=== PATIENT | male | born 1965 | race Caucasian/White ===

== ENCOUNTER 2019-01-28 14:19 | Outpatient (CLI) | payer OTHER ==
[2019-01-28] MEDS ORDERED: TADA20TA PO (14:52)
[2019-01-28] MEDS ORDERED: TAMS-11 PO (14:52)
[2019-01-28] MEDS ORDERED: NAPR220C2 PO (15:15)
[2019-01-28] MEDS ORDERED: MULTIVITAMIN PO (15:15)
[2019-01-28] MEDS ORDERED: FISH OIL PO (15:15)
[2019-01-28 15:28] LABS: ANION GAP 3 mmol/L (5-15); CALCIUM 8.7 mg/dL (8.5-10.1); CHLORIDE 114 mmol/L (98-107); CREATININE 0.85 mg/dL (0.7-1.3)
[2019-01-28 15:30] LABS: BASOPHILS # (AUTO) 0.02 x10^3/uL (0-0.1); BASOPHILS % (AUTO) 0 % (0-1); EOSINOPHILS # (AUTO) 0.04 x10^3/uL (0-0.4); EOSINOPHILS % (AUTO) 1 % (1-7); LYMPHOCYTES # (AUTO) 0.83 x10^3/uL (1-3.4); LYMPHOCYTES % (AUTO) 16 % (22-44); MD NO; MEAN CORPUSCULAR HEMOGLOBIN 30.7 pg (27.5-34.5); MEAN CORPUSCULAR HGB CONC 33.8 g/dL (33.2-36.2); MEAN CORPUSCULAR VOLUME 90.8 fL (81-97); MEAN PLATELET VOLUME 8.3 fL (7.4-10.4); MONOCYTES # (AUTO) 0.36 x10^3/uL (0.2-0.8); MONOCYTES % (AUTO) 7 % (2-9); NEUTROPHILS # (AUTO) 4.04 x10^3/uL (1.8-6.8); NEUTROPHILS % (AUTO) 76 % (42-75); PLATELET COUNT 231 x10^3/uL (130-400); RED BLOOD COUNT 4.91 x10^6/uL (4.38-5.82); RED CELL DISTRIBUTION WIDTH 13.4 % (9.4-14.8)
[2019-01-28 15:44] LABS: INTERNATIONAL NORMALIZED RATIO 0.96 (0.93-1.1); PROTHROMBIN TIME 10.1 Seconds (9.6-11.5)
[2019-01-28 16:35] LABS: HEMOGLOBIN A1C 5.4 % (4.2-6.3)
== END 2019-01-28 23:59 | disposition home or self-care (01) ==
LOC: STAR 14:19
PROVIDERS: ATTEND Orthopaedic Surgery
DX: M17.11 Unilateral primary osteoarthritis, right knee (principal)
CPT/HCPCS: 36415; 80048; 83036; 85025; 85610; 85730; 87081; 87147; 87806; G0475

== ENCOUNTER 2019-02-07 09:18 | Observation (INO) | payer OTHER ==
[2019-01-28 14:47] VITALS: BP 128/90
[~2019-02-07] VITALS: Ht 170.2 cm; Wt 112.2 kg
[~2019-02-07 09:18] MED LIST: EPINEPHRINE 1 MG/ML, 1ML ONE; FISH OIL PO; KETOROLAC 60 MG/2 ML ONE; MULTIVITAMIN PO; NAPR220C2 PO; ROPIvacaine/PF 0.2%, 20 ML ONE; SODIUM CHLORIDE 0.9% 50 ML ONE; TADA20TA PO; TAMS-11 PO; TRANEXAMIC ACID 100 MG/ML, 10ML ONE
[2019-02-07] MEDS ORDERED: LACTATED RINGERS 1,000 ML IV SCH (10:00)
[2019-02-07] MEDS ORDERED: ACETAMINOPHEN 500 MG TABLET PO ONE (10:00)
[2019-02-07] MEDS ORDERED: GABAPENTIN 300 MG CAPSULE PO ONE (10:00)
[2019-02-07] MEDS ORDERED: FENTANYL PF 250 MCG/5ML ONE ×2 (10:31→12:20)
[2019-02-07] MEDS ORDERED: MIDAZOLAM 1 MG/ML, 2ML ONE (10:31)
[2019-02-07] MEDS ORDERED: LIDOCAINE 2% 100MG/5ML SYRINGE ONE (11:48)
[2019-02-07] MEDS ORDERED: hydrALAzine 20 MG/ML, 1ML ONE (11:48)
[2019-02-07] MEDS ORDERED: SENNA/DOCUSATE TABLET PO PRN (12:00)
[2019-02-07] MEDS ORDERED: TRANEXAMIC ACID 1,000 MG in SODIUM CHLORIDE 0.9% 100 ML IVPB ONE (12:00)
[2019-02-07] MEDS ORDERED: ONDANSETRON 2MG/ML, 2ML IV PRN ×2 (12:00→12:30)
[2019-02-07] MEDS ORDERED: HYDROmorphone 1 MG/ML, 1ML IV PRN (12:00)
[2019-02-07] MEDS ORDERED: PROMETHAZINE 25 MG/ML, 1ML IM PRN (12:00)
[2019-02-07] MEDS ORDERED: ONDANSETRON 4 MG TABLET PO PRN (12:00)
[2019-02-07] MEDS ORDERED: ALUMINUM/MAG/SIMETHICONE 30 ML UDC PO PRN (12:00)
[2019-02-07] MEDS ORDERED: CEFAZOLIN PMX 1GM/50ML 50 ML IVPB SCH ×2 (12:00)
[2019-02-07] MEDS ORDERED: ACETAMINOPHEN 650 MG/20.3 ML UDC PO PRN (12:00)
[2019-02-07] MEDS ORDERED: MAGNESIUM HYDROXIDE 8%, 30ML UDC PO PRN (12:00)
[2019-02-07] MEDS ORDERED: DIPHENHYDRAMINE 50 MG CAPSULE PO PRN (12:00)
[2019-02-07] MEDS ORDERED: ONDANSETRON 2MG/ML, 2ML ONE (12:13)
[2019-02-07] MEDS ORDERED: DEXAMETHASONE 4 MG/ML, 1ML ONE (12:13)
[2019-02-07] MEDS ORDERED: CEFAZOLIN 1,000 MG ONE (12:13)
[2019-02-07] MEDS ORDERED: PROPOFOL 10 MG/ML, 20ML ONE (12:13)
[2019-02-07] MEDS ORDERED: OXYcodone 5 MG/5 ML ORAL.SOL UDC PO PRN (12:30)
[2019-02-07] MEDS ORDERED: PROMETHAZINE 25 MG/ML, 1ML IV PRN (12:30)
[2019-02-07] MEDS ORDERED: ONDANSETRON ODT 8 MG PO PRN (12:30)
[2019-02-07] MEDS ORDERED: LORazepam 2 MG/ML, 1ML IVPush PRN (12:30)
[2019-02-07] MEDS ORDERED: MEPERIDINE/PF 25MG/0.5ML IVPush PRN (12:30)
[2019-02-07] MEDS ORDERED: DIAZEPAM 5 MG/ML, 2ML IVPush PRN (12:30)
[2019-02-07] MEDS ORDERED: HYDROmorphone 1 MG/ML, 1ML ONE (13:29)
[2019-02-07] MEDS ORDERED: OXYcodone 5 MG/5 ML ORAL.SOL UDC ONE (13:29)
[2019-02-07] MEDS: HYDROmorphone 2 MG/ML, 1ML IVPush PRN ×2 (13:29→13:51)
[2019-02-07] MEDS ORDERED: FENTANYL PF 100 MCG/2ML ONE (13:29)
[2019-02-07] MEDS: FENTANYL PF 100 MCG/2ML IV PRN ×3 (13:40→14:08)
[2019-02-07] MEDS ORDERED: MEPERIDINE/PF 25MG/ML,1ML ONE (14:11)
[2019-02-07] MEDS: D5%-0.45NACL+KCL 20MEQ 1,000 ML IV SCH (17:46)
[2019-02-07] MEDS: ASPIRIN 81 MG TABLET EC PO SCH (18:25)
[2019-02-07] MEDS: OXYcodone IR 5MG TABLET PO PRN (18:47)
[2019-02-07] MEDS: DOCUSATE 100 MG CAPSULE PO SCH (19:51)
[2019-02-07 20:01] VITALS: BP 126/75
[2019-02-07] MEDS: CEFAZOLIN PMX 1GM/50ML 50 ML IVPB SCH (21:41)
[2019-02-08 00:13] VITALS: BP 108/55
[2019-02-08] MEDS: OXYcodone IR 5MG TABLET PO PRN ×4 (00:29→11:40)
[2019-02-08] MEDS: D5%-0.45NACL+KCL 20MEQ 1,000 ML IV SCH (04:00)
[2019-02-08 04:23] VITALS: BP 99/58
[2019-02-08] MEDS: ASPIRIN 81 MG TABLET EC PO SCH (04:49)
[2019-02-08] MEDS: CEFAZOLIN PMX 1GM/50ML 50 ML IVPB SCH (04:49)
[2019-02-08] MEDS ORDERED: DEXAMETHASONE 4 MG/ML, 1ML IVPush SCH (06:00)
[2019-02-08 07:31] VITALS: BP 124/74
[2019-02-08] MEDS: DOCUSATE 100 MG CAPSULE PO SCH (07:39)
[2019-02-08] MEDS ORDERED: TAMSULOSIN 0.4 MG CAP.ER.24H PO SCH (09:00)
[2019-02-08] MEDS ORDERED: ASPI81TA45 PO (09:41)
[2019-02-08] MEDS ORDERED: KETOROLAC 30 MG/1 ML IV SCH (12:00)
== END 2019-02-08 12:10 | disposition home or self-care (01) ==
LOC: OUT 09:18 → ORIP 11:45 → 4NOR 15:23 → DCLOUNGE 02-08 11:50
PROVIDERS: ADMIT Orthopaedic Surgery; ATTEND Orthopaedic Surgery
DX: M17.11 Unilateral primary osteoarthritis, right knee (principal)
CPT/HCPCS: 27447; 36415; 73560; 85014; 85018; 96365; 96366; 96375; 97110; 97161; C1713; C1776; G0378; J0171; J0360; J0690; J1100; J1170; J1885; J2175; J2250; J2405; J2704; J2795; J3010; J3480; J7120; Q0162

== ENCOUNTER → 2021-04-25 | Outpatient (CLI) | payer OTHER ==
[~2021-04-25] MED LIST changes: +ACET-1600 PO; +ASPI81TA45 PO; -EPINEPHRINE 1 MG/ML, 1ML ONE; +GABA300C PO; +IBUP200C8 PO; -KETOROLAC 60 MG/2 ML ONE; +LISI-170 PO; +PSYL1POW PO; -ROPIvacaine/PF 0.2%, 20 ML ONE; +ROSU10TA2 PO; -SODIUM CHLORIDE 0.9% 50 ML ONE; -TRANEXAMIC ACID 100 MG/ML, 10ML ONE
[2021-04-25 15:35] LABS: MICROSCOPIC NOT IND
[2021-04-25 15:40] LABS: BASOPHILS % (AUTO) 0 % (0-1); EOSINOPHILS % (AUTO) 1 % (1-7); LYMPHOCYTES % (AUTO) 15 % (22-44); MEAN CORPUSCULAR HEMOGLOBIN 30.6 pg (27.5-34.5); MEAN CORPUSCULAR HGB CONC 33.7 g/dL (33.2-36.2); MEAN PLATELET VOLUME 8.3 fL (7.4-10.4); MONOCYTES % (AUTO) 8 % (2-9); NEUTROPHILS % (AUTO) 75 % (42-75); PLATELET COUNT 233 x10^3/uL (130-400); RED BLOOD COUNT 4.99 x10^6/uL (4.38-5.82); RED CELL DISTRIBUTION WIDTH 13.8 % (9.4-14.8)
[2021-04-25 15:41] LABS: MD NO
[2021-04-25 15:42] LABS: ALANINE AMINOTRANSFERASE 43 U/L (12-78); CHLORIDE 108 mmol/L (98-107)
[2021-04-25 15:46] LABS: INTERNATIONAL NORMALIZED RATIO 0.95 (0.93-1.1); PROTHROMBIN TIME 10.2 Seconds (9.6-11.5)
[2021-04-25 15:47] LABS: ALBUMIN 3.7 g/dL (3.4-5.0); ALKALINE PHOSPHATASE 73 U/L (45-117); ANION GAP 6 mmol/L (5-15); BILIRUBIN,TOTAL 0.5 mg/dL (0.2-1.0); CALCIUM 9.2 mg/dL (8.5-10.1); CREATININE 0.92 mg/dL (0.7-1.3)
== END | disposition home or self-care (01) ==
LOC: STAR 13:59
PROVIDERS: ATTEND Neurological Surgery
DX: Z01.810 Encounter for preprocedural cardiovascular examination (principal); Z01.811 Encounter for preprocedural respiratory examination; Z01.812 Encounter for preprocedural laboratory examination; R79.1 Abnormal coagulation profile; R94.31 Abnormal electrocardiogram [ECG] [EKG]; R82.90 Unspecified abnormal findings in urine; M51.36 Other intervertebral disc degeneration, lumbar region; M48.061 Spinal stenosis, lumbar region without neurogenic claudication; I10 Essential (primary) hypertension; M51.35 Other intervertebral disc degeneration, thoracolumbar region; M48.05 Spinal stenosis, thoracolumbar region; M41.86 Other forms of scoliosis, lumbar region; M25.78 Osteophyte, vertebrae
CPT/HCPCS: 36415; 71046; 72110; 80053; 81003; 85025; 85610; 85730; 93005

== ENCOUNTER 2021-05-03 05:40 | Inpatient (IN) | payer OTHER ==
[~2021-05-03] VITALS: Ht 170.2 cm; Wt 130.4 kg
[2021-05-03] MEDS ORDERED: FENTANYL PF 250 MCG/5ML ONE ×3 (06:19→08:16)
[2021-05-03] MEDS ORDERED: MIDAZOLAM 1 MG/ML, 2ML ONE (06:19)
[2021-05-03] MEDS ORDERED: HEPARIN 1,000 UNITS/ML, 30ML ONE (06:22)
[2021-05-03] MEDS ORDERED: BACITRACIN 50,000 UNIT ONE (06:22)
[2021-05-03] MEDS ORDERED: PROPOFOL 100 ML ONE (06:23)
[2021-05-03] MEDS ORDERED: PROPOFOL 10 MG/ML, 20ML ONE (06:25)
[2021-05-03] MEDS ORDERED: GLYCOPYRROLATE 0.2MG/1ML, 5ML ONE (06:25)
[2021-05-03] MEDS ORDERED: NEOSTIGMINE 1 MG/ML, 10ML ONE (06:25)
[2021-05-03] MEDS ORDERED: ROCURONIUM 10MG/ML,5ML ONE ×2 (06:25→07:30)
[2021-05-03] MEDS ORDERED: CEFAZOLIN 1,000 MG ONE ×2 (06:25→07:16)
[2021-05-03] MEDS ORDERED: CHLORHEXIDINE 15 ML UDC PO ONE (06:30)
[2021-05-03] MEDS ORDERED: LACTATED RINGERS 1,000 ML IV SCH (06:30)
[2021-05-03] MEDS ORDERED: OXYcodone 5 MG/5 ML ORAL.SOL UDC PO PRN (07:00)
[2021-05-03] MEDS ORDERED: HYDROmorphone 1 MG/ML, 1ML INJ IVPush PRN (07:00)
[2021-05-03] MEDS ORDERED: morphine SULFATE 10 MG/ML, 1ML IVPush PRN ×2 (07:00→09:00)
[2021-05-03] MEDS ORDERED: MEPERIDINE/PF 25MG/0.5ML IVPush PRN (07:00)
[2021-05-03] MEDS ORDERED: LABETALOL 5MG/ML, 20ML IV PRN (07:00)
[2021-05-03] MEDS ORDERED: hydrALAzine 20 MG/ML, 1ML IV PRN (07:00)
[2021-05-03] MEDS ORDERED: ACETAMINOPHEN 325 MG TABLET PO PRN (07:00)
[2021-05-03] MEDS ORDERED: ONDANSETRON 2MG/ML, 2ML IVPush PRN ×2 (07:00→09:00)
[2021-05-03] MEDS ORDERED: FENTANYL PF 100 MCG/2ML IV PRN (07:00)
[2021-05-03] MEDS ORDERED: HEPARIN 1,000 UNITS/ML, 30ML IVPB ONE (07:47)
[2021-05-03] MEDS ORDERED: PROPOFOL 50 ML ONE (08:26)
[2021-05-03] MEDS: PSYLLIUM PACKET PO SCH (09:00)
[2021-05-03] MEDS ORDERED: PROMETHAZINE 25 MG/ML, 1ML IM PRN (09:00)
[2021-05-03] MEDS: LISINOPRIL 20 MG TABLET PO SCH (09:00)
[2021-05-03] MEDS ORDERED: PHARMACY MAY ADJ FOR RENAL FX MC PRN (09:00)
[2021-05-03] MEDS ORDERED: MAGNESIUM HYDROXIDE 8%, 30ML UDC PO PRN (09:00)
[2021-05-03] MEDS ORDERED: HYDROcodone/APAP 10/325 MG TABLET PO PRN (09:00)
[2021-05-03] MEDS ORDERED: METHOCARBAMOL 1,000 MG in DEXTROSE 5% 100 ML IV ONE (09:00)
[2021-05-03] MEDS ORDERED: DIPHENHYDRAMINE 50 MG CAPSULE PO PRN (09:00)
[2021-05-03] MEDS: GABAPENTIN 300 MG CAPSULE PO SCH ×2 (09:00→20:40)
[2021-05-03] MEDS ORDERED: LABETALOL 5MG/ML, 20ML IVPush PRN (09:00)
[2021-05-03] MEDS: TAMSULOSIN 0.4 MG CAP.ER.24H PO SCH (09:00)
[2021-05-03] MEDS ORDERED: OXYcodone 5 MG/5 ML ORAL.SOL UDC ONE (09:19)
[2021-05-03] MEDS ORDERED: ACETAMINOPHEN 650 MG/20.3 ML UDC ONE (09:19)
[2021-05-03] MEDS ORDERED: hydrALAzine 20 MG/ML, 1ML ONE (09:34)
[2021-05-03] MEDS ORDERED: LABETALOL 5MG/ML, 20ML ONE (09:47)
[2021-05-03] MEDS ORDERED: ONDANSETRON 2MG/ML, 2ML ONE (09:47)
[2021-05-03] MEDS ORDERED: KETOROLAC 30 MG/1 ML IVPush STA (09:58)
[2021-05-03] MEDS ORDERED: KETOROLAC 30 MG/1 ML ONE (10:01)
[2021-05-03] MEDS: NS + 20MEQ KCL 1,000 ML IV SCH (12:04)
[2021-05-03] MEDS: METHOCARBAMOL 750 MG TABLET PO PRN ×2 (14:16→23:19)
[2021-05-03] MEDS: OXYcodone/APAP 5/325MG TABLET PO PRN ×2 (14:17→20:40)
[2021-05-03] MEDS: CEFAZOLIN PMX 1GM/50ML 50 ML IVPB SCH ×2 (14:18→23:19)
[2021-05-03 15:58] VITALS: BP 151/96
[2021-05-03 20:08] VITALS: BP 148/91
[2021-05-03] MEDS: ENOXAPARIN 30 MG/0.3 ML SQ SCH (20:40)
[2021-05-03] MEDS: ATORVASTATIN 40 MG TABLET PO SCH (20:40)
[2021-05-04 00:06] VITALS: BP 127/77
[2021-05-04] MEDS: NS + 20MEQ KCL 1,000 ML IV SCH ×2 (01:56→16:06)
[2021-05-04] MEDS ORDERED: ENOXAPARIN 40 MG/0.4 ML SQ SCH (06:00)
[2021-05-04 07:18] VITALS: BP 159/94
[2021-05-04] MEDS: CYCLOBENZAPRINE 10 MG TABLET PO PRN ×2 (08:47→20:23)
[2021-05-04] MEDS: PSYLLIUM PACKET PO SCH (08:47)
[2021-05-04] MEDS: LISINOPRIL 20 MG TABLET PO SCH (08:47)
[2021-05-04] MEDS: GABAPENTIN 300 MG CAPSULE PO SCH ×2 (08:47→20:21)
[2021-05-04] MEDS: ENOXAPARIN 30 MG/0.3 ML SQ SCH ×2 (08:48→20:00)
[2021-05-04] MEDS: TAMSULOSIN 0.4 MG CAP.ER.24H PO SCH (08:48)
[2021-05-04] MEDS: SENNA/DOCUSATE TABLET PO PRN (08:48)
[2021-05-04 09:10] LABS: BASOPHILS % (AUTO) 0 % (0-1); EOSINOPHILS % (AUTO) 0 % (1-7); LYMPHOCYTES % (AUTO) 5 % (22-44); MEAN CORPUSCULAR HEMOGLOBIN 30.8 pg (27.5-34.5); MEAN CORPUSCULAR HGB CONC 33.8 g/dL (33.2-36.2); MEAN PLATELET VOLUME 8.3 fL (7.4-10.4); MONOCYTES % (AUTO) 8 % (2-9); NEUTROPHILS % (AUTO) 87 % (42-75); PLATELET COUNT 185 x10^3/uL (130-400); RED BLOOD COUNT 4.71 x10^6/uL (4.38-5.82); RED CELL DISTRIBUTION WIDTH 13.7 % (9.4-14.8)
[2021-05-04 09:21] LABS: ANION GAP 6 mmol/L (5-15); CHLORIDE 109 mmol/L (98-107); CREATININE 0.65 mg/dL (0.7-1.3)
[2021-05-04 14:40] VITALS: BP 144/88
[2021-05-04 20:00] VITALS: BP 150/87
[2021-05-04] MEDS: ATORVASTATIN 40 MG TABLET PO SCH (20:21)
[2021-05-04] MEDS: HYDROcodone/APAP 5/325 TABLET PO PRN (22:28)
[2021-05-04] MEDS: DIPHENHYDRAMINE 50 MG/ML, 1ML IVPush PRN (22:53)
[2021-05-05 02:55] VITALS: BP 154/91
[2021-05-05] MEDS: NS + 20MEQ KCL 1,000 ML IV SCH ×2 (04:54→17:01)
[2021-05-05] MEDS ORDERED: BUPIVACAINE/PF 0.5% ONE (05:50)
[2021-05-05] MEDS ORDERED: EPINEPHRINE 1 MG/ML, 1ML ONE (05:50)
[2021-05-05] MEDS ORDERED: BACITRACIN 50,000 UNIT ONE (05:50)
[2021-05-05] MEDS ORDERED: FENTANYL PF 250 MCG/5ML ONE (06:40)
[2021-05-05] MEDS ORDERED: MIDAZOLAM 1 MG/ML, 2ML ONE (06:40)
[2021-05-05] MEDS ORDERED: PROPOFOL 50 ML ONE (06:40)
[2021-05-05] MEDS ORDERED: PROPOFOL 250 ML ONE (06:41)
[2021-05-05] MEDS ORDERED: PROPOFOL 300 ML ONE (06:42)
[2021-05-05] MEDS ORDERED: PROPOFOL 10 MG/ML, 20ML ONE (07:28)
[2021-05-05] MEDS ORDERED: SUCCINYLCHOLINE 20 MG/ML, 10ML ONE (07:28)
[2021-05-05] MEDS ORDERED: ONDANSETRON 2MG/ML, 2ML ONE (07:28)
[2021-05-05] MEDS ORDERED: DEXAMETHASONE 4 MG/ML, 1ML ONE (07:28)
[2021-05-05] MEDS ORDERED: CEFAZOLIN 1,000 MG ONE (07:28)
[2021-05-05] MEDS ORDERED: PROMETHAZINE 25 MG/ML, 1ML IVPush PRN (07:30)
[2021-05-05] MEDS ORDERED: LABETALOL 5MG/ML, 20ML IV PRN (07:30)
[2021-05-05] MEDS ORDERED: FENTANYL PF 100 MCG/2ML IV PRN (07:30)
[2021-05-05] MEDS ORDERED: ACETAMINOPHEN 325 MG TABLET PO PRN (07:30)
[2021-05-05] MEDS ORDERED: HYDROmorphone 1 MG/ML, 1ML INJ IVPush PRN (07:30)
[2021-05-05] MEDS ORDERED: OXYcodone 5 MG/5 ML ORAL.SOL UDC PO PRN (07:30)
[2021-05-05] MEDS ORDERED: ONDANSETRON 2MG/ML, 2ML IVPush PRN ×2 (07:30→10:00)
[2021-05-05] MEDS ORDERED: hydrALAzine 20 MG/ML, 1ML IV PRN (07:30)
[2021-05-05] MEDS ORDERED: EPHEDRINE 50 MG/ML, 1ML IVPush PRN (07:30)
[2021-05-05] MEDS ORDERED: EPHEDRINE 50 MG/ML, 1ML ONE (08:04)
[2021-05-05] MEDS ORDERED: HYDROmorphone 1 MG/ML, 1ML INJ ONE ×2 (08:26→09:05)
[2021-05-05] MEDS: PSYLLIUM PACKET PO SCH (09:00)
[2021-05-05] MEDS: ENOXAPARIN 30 MG/0.3 ML SQ SCH ×2 (09:00→20:53)
[2021-05-05] MEDS ORDERED: OXYcodone/APAP 5/325MG TABLET PO PRN (10:00)
[2021-05-05] MEDS ORDERED: PHARMACY MAY ADJ FOR RENAL FX MC PRN (10:00)
[2021-05-05] MEDS ORDERED: LABETALOL 5MG/ML, 20ML IVPush PRN (10:00)
[2021-05-05] MEDS ORDERED: morphine SULFATE 10 MG/ML, 1ML IVPush PRN (10:00)
[2021-05-05] MEDS ORDERED: HYDROcodone/APAP 10/325 MG TABLET PO PRN (10:00)
[2021-05-05] MEDS ORDERED: PROMETHAZINE 25 MG/ML, 1ML IM PRN (10:00)
[2021-05-05] MEDS ORDERED: METHOCARBAMOL 1,000 MG in DEXTROSE 5% 100 ML IV ONE (10:15)
[2021-05-05] MEDS ORDERED: NS + 20MEQ KCL 1,000 ML IV SCH (10:30)
[2021-05-05] MEDS ORDERED: METHOCARBAMOL 750 MG TABLET PO PRN (12:00)
[2021-05-05] MEDS: CYCLOBENZAPRINE 10 MG TABLET PO PRN ×2 (12:49→20:54)
[2021-05-05] MEDS: HYDROcodone/APAP 5/325 TABLET PO PRN ×3 (12:49→20:53)
[2021-05-05] MEDS: GABAPENTIN 300 MG CAPSULE PO SCH ×2 (12:49→20:52)
[2021-05-05 13:00] VITALS: BP 154/99
[2021-05-05] MEDS: LISINOPRIL 20 MG TABLET PO SCH (13:37)
[2021-05-05] MEDS: TAMSULOSIN 0.4 MG CAP.ER.24H PO SCH (13:38)
[2021-05-05 16:05] VITALS: BP 152/99
[2021-05-05] MEDS: SENNA/DOCUSATE TABLET PO PRN (17:01)
[2021-05-05] MEDS: CEFAZOLIN PMX 1GM/50ML 50 ML IVPB SCH (17:01)
[2021-05-05 20:01] VITALS: BP 132/85
[2021-05-05] MEDS: ATORVASTATIN 40 MG TABLET PO SCH (20:52)
[2021-05-05] MEDS: DIPHENHYDRAMINE 50 MG/ML, 1ML IVPush PRN (22:03)
[2021-05-06] MEDS: CEFAZOLIN PMX 1GM/50ML 50 ML IVPB SCH ×3 (00:40→23:29)
[2021-05-06 00:46] VITALS: BP 121/71
[2021-05-06 03:49] VITALS: BP 109/71
[2021-05-06 05:38] LABS: ANION GAP 3 mmol/L (5-15); CALCIUM 8.9 mg/dL (8.5-10.1); CHLORIDE 106 mmol/L (98-107); CREATININE 0.69 mg/dL (0.7-1.3)
[2021-05-06 05:48] LABS: BASOPHILS % (AUTO) 0 % (0-1); EOSINOPHILS % (AUTO) 0 % (1-7); LYMPHOCYTES % (AUTO) 7 % (22-44); MEAN CORPUSCULAR HEMOGLOBIN 30.7 pg (27.5-34.5); MEAN PLATELET VOLUME 8.3 fL (7.4-10.4); MONOCYTES % (AUTO) 11 % (2-9); NEUTROPHILS % (AUTO) 82 % (42-75); PLATELET COUNT 208 x10^3/uL (130-400); RED BLOOD COUNT 4.51 x10^6/uL (4.38-5.82); RED CELL DISTRIBUTION WIDTH 13.3 % (9.4-14.8)
[2021-05-06] MEDS ORDERED: EPINEPHRINE 1 MG/ML, 1ML ONE (06:13)
[2021-05-06] MEDS ORDERED: BUPIVACAINE/PF 0.25% ONE (06:13)
[2021-05-06] MEDS ORDERED: VANCOMYCIN 1,000 MG ONE (06:13)
[2021-05-06] MEDS ORDERED: BUPIVACAINE/PF 0.5% ONE (06:13)
[2021-05-06] MEDS ORDERED: FENTANYL PF 100 MCG/2ML ONE ×2 (06:13→08:25)
[2021-05-06] MEDS ORDERED: BACITRACIN 50,000 UNIT ONE (06:14)
[2021-05-06] MEDS: NS + 20MEQ KCL 1,000 ML IV SCH ×3 (06:20→22:10)
[2021-05-06] MEDS ORDERED: CHLORHEXIDINE 15 ML UDC ONE (06:36)
[2021-05-06] MEDS ORDERED: MIDAZOLAM 1 MG/ML, 2ML ONE (06:48)
[2021-05-06] MEDS ORDERED: FENTANYL PF 250 MCG/5ML ONE ×2 (06:49→08:31)
[2021-05-06] MEDS ORDERED: CHLORHEXIDINE 15 ML UDC PO ONE (07:00)
[2021-05-06] MEDS ORDERED: BUPIVACAINE LIPOSOME/PF 10ML INFIL ONE (08:00)
[2021-05-06] MEDS ORDERED: ROCURONIUM 10MG/ML,5ML ONE (09:59)
[2021-05-06] MEDS ORDERED: ONDANSETRON 2MG/ML, 2ML ONE (09:59)
[2021-05-06] MEDS ORDERED: GLYCOPYRROLATE 0.2MG/1ML, 5ML ONE (09:59)
[2021-05-06] MEDS ORDERED: SUCCINYLCHOLINE 20 MG/ML, 10ML ONE (09:59)
[2021-05-06] MEDS ORDERED: NEOSTIGMINE 1 MG/ML, 10ML ONE (09:59)
[2021-05-06] MEDS ORDERED: PROPOFOL 10 MG/ML, 20ML ONE (09:59)
[2021-05-06] MEDS ORDERED: CEFAZOLIN 1,000 MG ONE (09:59)
[2021-05-06] MEDS ORDERED: DEXAMETHASONE 4 MG/ML, 1ML ONE (09:59)
[2021-05-06] MEDS ORDERED: PHARMACY MAY ADJ FOR RENAL FX MC PRN (10:30)
[2021-05-06] MEDS ORDERED: FENTANYL PF 100 MCG/2ML IV PRN (10:30)
[2021-05-06] MEDS ORDERED: morphine SULFATE 10 MG/ML, 1ML IVPush PRN (10:30)
[2021-05-06] MEDS ORDERED: CYCLOBENZAPRINE 10 MG TABLET PO PRN (10:30)
[2021-05-06] MEDS ORDERED: LABETALOL 5MG/ML, 20ML IVPush PRN (10:30)
[2021-05-06] MEDS ORDERED: ALBUTEROL SULFATE 2.5 MG/3 ML NPPB PRN (10:30)
[2021-05-06] MEDS ORDERED: SENNA/DOCUSATE TABLET PO PRN (10:30)
[2021-05-06] MEDS ORDERED: PROMETHAZINE 25 MG/ML, 1ML IV PRN (10:30)
[2021-05-06] MEDS ORDERED: hydrALAzine 20 MG/ML, 1ML IV PRN (10:30)
[2021-05-06] MEDS ORDERED: KETOROLAC 30 MG/1 ML IV PRN (10:30)
[2021-05-06] MEDS ORDERED: DIPHENHYDRAMINE 50 MG CAPSULE PO PRN (10:30)
[2021-05-06] MEDS ORDERED: DIAZEPAM 5 MG/ML, 2ML IVPush PRN (10:30)
[2021-05-06] MEDS ORDERED: LABETALOL 5MG/ML, 20ML IV PRN (10:30)
[2021-05-06] MEDS ORDERED: BISACODYL 10 MG SUPP PR PRN (10:30)
[2021-05-06] MEDS ORDERED: MAGNESIUM HYDROXIDE 8%, 30ML UDC PO PRN (10:30)
[2021-05-06] MEDS ORDERED: OXYcodone/APAP 5/325MG TABLET PO PRN (10:30)
[2021-05-06] MEDS ORDERED: METHOCARBAMOL 750 MG TABLET PO PRN (10:30)
[2021-05-06] MEDS ORDERED: ACETAMINOPHEN 325 MG TABLET PO PRN (10:30)
[2021-05-06] MEDS ORDERED: HYDROcodone/APAP 10/325 MG TABLET PO PRN (10:30)
[2021-05-06] MEDS ORDERED: OXYcodone 5 MG/5 ML ORAL.SOL UDC PO PRN (10:30)
[2021-05-06] MEDS ORDERED: MEPERIDINE/PF 25MG/0.5ML IVPush PRN (10:30)
[2021-05-06] MEDS ORDERED: HYDROmorphone 2 MG/ML, 1ML IVPush PRN (10:30)
[2021-05-06] MEDS ORDERED: METHOCARBAMOL 1,000 MG in DEXTROSE 5% 100 ML IV ONE (10:30)
[2021-05-06] MEDS ORDERED: PROMETHAZINE 25 MG/ML, 1ML IM PRN (10:30)
[2021-05-06] MEDS ORDERED: ONDANSETRON 2MG/ML, 2ML IVPush PRN (10:30)
[2021-05-06] MEDS ORDERED: ENOXAPARIN 40 MG/0.4 ML SQ SCH (11:00)
[2021-05-06] MEDS: PSYLLIUM PACKET PO SCH (12:05)
[2021-05-06] MEDS: TAMSULOSIN 0.4 MG CAP.ER.24H PO SCH (12:05)
[2021-05-06] MEDS: LISINOPRIL 20 MG TABLET PO SCH (12:05)
[2021-05-06] MEDS: GABAPENTIN 300 MG CAPSULE PO SCH ×2 (12:06→20:16)
[2021-05-06] MEDS: CYCLOBENZAPRINE 10 MG TABLET PO PRN ×2 (12:06→20:16)
[2021-05-06 12:49] VITALS: BP 134/90
[2021-05-06] MEDS: HYDROcodone/APAP 5/325 TABLET PO PRN ×2 (15:22→23:29)
[2021-05-06 19:06] VITALS: BP 114/65
[2021-05-06] MEDS: DIPHENHYDRAMINE 50 MG/ML, 1ML IVPush PRN (20:16)
[2021-05-06] MEDS: ATORVASTATIN 40 MG TABLET PO SCH (20:16)
[2021-05-06] MEDS: SODIUM CHLORIDE FLUSH 10ML SYR IVF SCH (21:00)
[2021-05-06 23:23] VITALS: BP 110/63
[2021-05-07 03:39] VITALS: BP 125/74
[2021-05-07] MEDS: HYDROcodone/APAP 5/325 TABLET PO PRN ×4 (03:56→17:30)
[2021-05-07 05:34] LABS: BASOPHILS % (AUTO) 0 % (0-1); EOSINOPHILS % (AUTO) 1 % (1-7); LYMPHOCYTES % (AUTO) 7 % (22-44); MEAN CORPUSCULAR HEMOGLOBIN 30.9 pg (27.5-34.5); MEAN CORPUSCULAR HGB CONC 34.1 g/dL (33.2-36.2); MEAN PLATELET VOLUME 8.1 fL (7.4-10.4); MONOCYTES % (AUTO) 12 % (2-9); NEUTROPHILS % (AUTO) 80 % (42-75); PLATELET COUNT 190 x10^3/uL (130-400); RED BLOOD COUNT 3.87 x10^6/uL (4.38-5.82); RED CELL DISTRIBUTION WIDTH 13.3 % (9.4-14.8)
[2021-05-07 05:45] LABS: ANION GAP 2 mmol/L (5-15); CALCIUM 8.3 mg/dL (8.5-10.1); CHLORIDE 105 mmol/L (98-107)
[2021-05-07] MEDS: MAGNESIUM HYDROXIDE 8%, 30ML UDC PO PRN (06:43)
[2021-05-07] MEDS: NS + 20MEQ KCL 1,000 ML IV SCH ×2 (07:00→14:47)
[2021-05-07 07:56] VITALS: BP 127/75
[2021-05-07] MEDS: GABAPENTIN 300 MG CAPSULE PO SCH ×2 (09:15→21:19)
[2021-05-07] MEDS: LISINOPRIL 20 MG TABLET PO SCH (09:15)
[2021-05-07] MEDS: CYCLOBENZAPRINE 10 MG TABLET PO PRN ×2 (09:15→17:30)
[2021-05-07] MEDS: TAMSULOSIN 0.4 MG CAP.ER.24H PO SCH (09:15)
[2021-05-07] MEDS: PSYLLIUM PACKET PO SCH (09:15)
[2021-05-07] MEDS: SODIUM CHLORIDE FLUSH 10ML SYR IVF SCH ×2 (09:16→22:11)
[2021-05-07 13:27] VITALS: BP 121/66
[2021-05-07 19:57] VITALS: BP 109/69
[2021-05-07] MEDS: ATORVASTATIN 40 MG TABLET PO SCH (21:20)
[2021-05-07] MEDS: ENOXAPARIN 30 MG/0.3 ML SQ SCH (21:20)
[2021-05-07] MEDS: DIPHENHYDRAMINE 50 MG CAPSULE PO PRN (21:20)
[2021-05-07] MEDS: SENNA/DOCUSATE TABLET PO PRN (21:26)
[2021-05-08] MEDS: NS + 20MEQ KCL 1,000 ML IV SCH ×3 (03:00→23:00)
[2021-05-08 03:45] VITALS: BP 121/81
[2021-05-08 05:02] LABS: BASOPHILS % (AUTO) 0 % (0-1); EOSINOPHILS % (AUTO) 2 % (1-7); LYMPHOCYTES % (AUTO) 10 % (22-44); MEAN CORPUSCULAR HEMOGLOBIN 30.4 pg (27.5-34.5); MEAN CORPUSCULAR HGB CONC 33.5 g/dL (33.2-36.2); MEAN PLATELET VOLUME 7.9 fL (7.4-10.4); MONOCYTES % (AUTO) 13 % (2-9); NEUTROPHILS % (AUTO) 75 % (42-75); PLATELET COUNT 182 x10^3/uL (130-400); RED BLOOD COUNT 3.88 x10^6/uL (4.38-5.82); RED CELL DISTRIBUTION WIDTH 13.4 % (9.4-14.8)
[2021-05-08 06:54] VITALS: BP 127/76
[2021-05-08] MEDS: MAGNESIUM HYDROXIDE 8%, 30ML UDC PO PRN (08:03)
[2021-05-08] MEDS: LISINOPRIL 20 MG TABLET PO SCH (08:03)
[2021-05-08] MEDS: SENNA/DOCUSATE TABLET PO PRN (08:03)
[2021-05-08] MEDS: TAMSULOSIN 0.4 MG CAP.ER.24H PO SCH (08:03)
[2021-05-08] MEDS: GABAPENTIN 300 MG CAPSULE PO SCH ×2 (08:03→20:48)
[2021-05-08] MEDS: HYDROcodone/APAP 5/325 TABLET PO PRN ×3 (08:04→17:59)
[2021-05-08] MEDS: PSYLLIUM PACKET PO SCH (08:05)
[2021-05-08] MEDS: SODIUM CHLORIDE FLUSH 10ML SYR IVF SCH ×2 (08:05→20:55)
[2021-05-08] MEDS: ENOXAPARIN 30 MG/0.3 ML SQ SCH ×2 (08:05→20:53)
[2021-05-08 12:26] VITALS: BP 102/67
[2021-05-08 20:35] VITALS: BP 115/70
[2021-05-08] MEDS: ATORVASTATIN 40 MG TABLET PO SCH (20:48)
[2021-05-08] MEDS: DIPHENHYDRAMINE 50 MG CAPSULE PO PRN (20:52)
[2021-05-09 02:15] VITALS: BP 138/84
[2021-05-09 04:54] LABS: BASOPHILS % (AUTO) 0 % (0-1); EOSINOPHILS % (AUTO) 1 % (1-7); LYMPHOCYTES % (AUTO) 11 % (22-44); MEAN CORPUSCULAR HEMOGLOBIN 30.2 pg (27.5-34.5); MEAN CORPUSCULAR HGB CONC 33.3 g/dL (33.2-36.2); MONOCYTES % (AUTO) 11 % (2-9); NEUTROPHILS % (AUTO) 77 % (42-75); PLATELET COUNT 236 x10^3/uL (130-400); RED BLOOD COUNT 4.19 x10^6/uL (4.38-5.82); RED CELL DISTRIBUTION WIDTH 13.1 % (9.4-14.8)
[2021-05-09] MEDS: PSYLLIUM PACKET PO SCH (07:55)
[2021-05-09 07:56] VITALS: BP 117/87
[2021-05-09] MEDS: TAMSULOSIN 0.4 MG CAP.ER.24H PO SCH (08:10)
[2021-05-09] MEDS: NS + 20MEQ KCL 1,000 ML IV SCH ×2 (08:10→08:12)
[2021-05-09] MEDS: ENOXAPARIN 30 MG/0.3 ML SQ SCH (08:10)
[2021-05-09] MEDS: LISINOPRIL 20 MG TABLET PO SCH (08:10)
[2021-05-09] MEDS: GABAPENTIN 300 MG CAPSULE PO SCH (08:10)
[2021-05-09] MEDS: HYDROcodone/APAP 5/325 TABLET PO PRN ×2 (08:10→13:20)
[2021-05-09] MEDS: SODIUM CHLORIDE FLUSH 10ML SYR IVF SCH (08:11)
[2021-05-09] MEDS: CYCLOBENZAPRINE 10 MG TABLET PO PRN (11:04)
[2021-05-09 12:49] VITALS: BP 124/81
== END 2021-05-09 16:02 | DRG 454 ==
LOC: ORIP 05:40 → 4NE 10:50
PROVIDERS: ADMIT Neurological Surgery; ATTEND Neurological Surgery
PROC: 0SB40ZZ Excision of Lumbosacral Disc, Open Approach (ICD-10-PCS; 2021-05-03)
PROC: 01NB0ZZ Release Lumbar Nerve, Open Approach (ICD-10-PCS; 2021-05-03)
PROC: 01NR0ZZ Release Sacral Nerve, Open Approach (ICD-10-PCS; 2021-05-03)
PROC: 4A11X4G Monitoring of Peripheral Nervous Electrical Activity, Intraoperative, External Approach (ICD-10-PCS; 2021-05-03)
PROC: 0SG30A0 Fusion of Lumbosacral Joint with Interbody Fusion Device, Anterior Approach, Anterior Column, Open Approach (ICD-10-PCS; principal; 2021-05-03 07:00)
PROC: 0SG10A0 Fusion of 2 or more Lumbar Vertebral Joints with Interbody Fusion Device, Anterior Approach, Anterior Column, Open Approach (ICD-10-PCS; 2021-05-05)
PROC: 0SG1371 Fusion of 2 or more Lumbar Vertebral Joints with Autologous Tissue Substitute, Posterior Approach, Posterior Column, Percutaneous Approach (ICD-10-PCS; 2021-05-06)
PROC: 0SG3371 Fusion of Lumbosacral Joint with Autologous Tissue Substitute, Posterior Approach, Posterior Column, Percutaneous Approach (ICD-10-PCS; 2021-05-06)
PROC: 01NB3ZZ Release Lumbar Nerve, Percutaneous Approach (ICD-10-PCS; 2021-05-06)
PROC: 01NR3ZZ Release Sacral Nerve, Percutaneous Approach (ICD-10-PCS; 2021-05-06)
PROC: 4A11X4G Monitoring of Peripheral Nervous Electrical Activity, Intraoperative, External Approach (ICD-10-PCS; 2021-05-06)
PROC: 8E0W0CZ Robotic Assisted Procedure of Trunk Region, Open Approach (ICD-10-PCS; 2021-05-06)
DX: M48.062 Spinal stenosis, lumbar region with neurogenic claudication (principal); Z68.42 Body mass index [BMI] 45.0-49.9, adult; M51.36 Other intervertebral disc degeneration, lumbar region; E66.01 Morbid (severe) obesity due to excess calories; G89.29 Other chronic pain; M41.86 Other forms of scoliosis, lumbar region; M47.816 Spondylosis without myelopathy or radiculopathy, lumbar region; M48.07 Spinal stenosis, lumbosacral region; M51.17 Intervertebral disc disorders with radiculopathy, lumbosacral region; M53.2X6 Spinal instabilities, lumbar region; Z20.822 Contact with and (suspected) exposure to COVID-19
CPT/HCPCS: 36415; 72100; 74018; S0020; 72131; 72148; 80048; 85025; 86850; 86900; 87635; 95938; 95941; C1713; C1776; G0378; J0171; J0690; J1100; J1170; J1644; J1650; J1885; J2250; J2405; J2704; J2710; J3010; J3370; J3480; U0005; C1760; C1763; C1769; C1889; J0330; J0360; J1200; J2270; J2800; J7120; U0003